=== PATIENT | female | born 1955 | race Hispanic/Latino ===

== ENCOUNTER 2017-11-16 07:32 | Inpatient (IN) | payer MEDICARE, MEDICAID ==
[2017-11-16 07:32] VITALS: BMI 30.2
--- NOTE | 2017-11-16 08:01 | ED PDOC ---
Arrival/HPI - General Chief Complaint: Psychiatric Evaluation Time Seen by Provider: 11/16/17 07:44 Historian: Patient - History of Present Illness Narrative History of Present Illness (Text): 11/16/17 08:00 A 62 year old male/female, whose past medical history includes major depressive disorder, presents to the emergency department for depression for past 3 months. Patient reports since a family member in August she has been experiencing anxiety, constant thinking, appetite changes and social withdrawal. Patient denies any suicidal ideation, fever, chills, shortness of breath, chest pain, diarrhea, nausea, vomiting, urinary symptoms, back pain, neck pain, headache, dizziness, or any other complaints. Psychiatrist: Dr. De La Vega Time/Duration: > month (3 months) Symptom Onset: Gradual Symptom Course: Unchanged Activities at Onset: Light Context: Home Past Medical History - Provider Review Nursing Documentation Reviewed: Yes - Tetanus Immunization Tetanus Immunization: Unknown - Cardiac Hx Hypertension: Yes - Pulmonary Hx Bronchitis: Yes Hx Chronic Obstructive Pulmonary Disease (COPD): Yes - Neurological Hx Alzheimer's Disease: No Hx Dementia: No Hx Migraine: No Hx Parkinson's Disease: No Hx Seizures: No Hx Transient Ischemic Attacks (TIA): No - HEENT Hx Cataracts: Yes (2 yrs ago) - Renal Hx Renal Disorder: No Hx Kidney Stones: No - Endocrine/Metabolic Hx Hyperthyroidism: No Hx Hypothyroidism: No - Hematological/Oncological Hx Anemia: No Hx Sickle Cell Disease: No - Integumentary Hx Dermatological Disorder: No Hx Basal Cell Carcinoma: No Hx Eczema: No Hx Melanoma: No Hx Psoriasis: No Hx Squamous Cell Carcinoma: No - Musculoskeletal/Rheumatological Hx Arthritis: Yes Hx Rheumatoid Arthritis: Yes - Gastrointestinal Hx Crohn's Disease: No Hx Diverticulitis: No Hx Gall Bladder Disease: No Hx Pancreatitis: No - Genitourinary/Gynecological Hx Sexually Transmitted Diseases: No - Psychiatric Hx Anxiety: Yes Hx Bipolar Disorder: Yes Hx Depression: Yes Hx Substance Use: No - Surgical History Hx Appendectomy: No Hx Cholecystectomy: No Hx Coronary Stent: No - Anesthesia Hx Anesthesia: Yes Hx Anesthesia Reactions: No - Suicidal Assessment Feels Threatened In Home Enviroment: No Family/Social History - Physician Review Nursing Documentation Reviewed: Yes Family/Social History: Unknown Family HX Smoking Status: Former Smoker Hx Alcohol Use: No Hx Substance Use: No Allergies/Home Meds Allergies/Adverse Reactions: Allergies No Known Allergies Allergy (Verified 11/19/17 04:21) Review of Systems - Physician Review All systems were reviewed & negative as marked: Yes - Review of Systems Constitutional: absent: Fevers, Night Sweats Respiratory: absent: SOB Cardiovascular: absent: Chest Pain Gastrointestinal: absent: Diarrhea, Nausea, Vomiting Genitourinary Female: absent: Urine Output Changes Musculoskeletal: absent: Back Pain, Neck Pain Neurological: absent: Headache, Dizziness Psychiatric: Anxiety, Depression. absent: Suicidal Ideation Physical Exam Vital Signs Reviewed: Yes Vital Signs Temp Pulse Resp BP Pulse Ox 11/16/17 11:18 98.3 F 68 18 128/68 99 11/16/17 10:18 72 16 131/70 99 11/16/17 09:17 75 18 133/64 99 11/16/17 07:43 98.1 F 79 16 135/66 97 Temperature: Afebrile Blood Pressure: Normal Pulse: Regular Respiratory Rate: Normal Appearance: Positive for: Well-Appearing, Non-Toxic, Comfortable, Other (Tearful) Pain Distress: None Mental Status: Positive for: Alert and Oriented X 3 - Systems Exam Head: Present: Atraumatic, Normocephalic Pupils: Present: PERRL Extroacular Muscles: Present: EOMI Conjunctiva: Present: Normal Mouth: Present: Moist Mucous Membranes Neck: Present: Normal Range of Motion Respiratory/Chest: Present: Clear to Auscultation, Good Air Exchange. No: Respiratory Distress, Accessory Muscle Use Cardiovascular: Present: Regular Rate and Rhythm, Normal S1, S2. No: Murmurs Abdomen: No: Tenderness, Distention, Peritoneal Signs Back: Present: Normal Inspection Upper Extremity: Present: Normal Inspection. No: Cyanosis, Edema Lower Extremity: Present: Normal Inspection. No: Edema Neurological: Present: GCS=15, CN II-XII Intact, Speech Normal Skin: Present: Warm, Dry, Normal Color. No: Rashes Psychiatric: Present: Alert, Oriented x 3, Normal Insight, Normal Concentration, Anxious, Depressed Mood. No: Normal Affect, Normal Mood, Agitated, Suicidal Ideation, Homicidal Ideation, Delusional, Hallucinations, Intoxicated, Lethargic Medical Decision Making ED Course and Treatment: 11/16/17 08:03 Impression: 62 year old female presenting to the emergency department for depression. Plan: -- EKG -- Acetaminophen -- Alcohol serum -- CMP -- Magnesium -- Salicylate -- CBC -- Urinalysis -- Reassess and disposition Prior Visits: Notes and results from previous visits were reviewed. Progress Notes: 11/16/17 08:09 EKG: Ordered, reviewed, and independently interpreted the EKG. Rate : 73 BPM Rhythm : NSR Interpretation : No ST-segment elevations or depressions, no T-wave inversions, normal intervals. Comparison : No previous EKG for comparison. 11/16/17 08:55 Patient is medically cleared for psych evaluation. Patient was evaluated by PES and will be admitted to the hospital. - Lab Interpretations Lab Results: 11/16/17 08:00 11/16/17 08:00 Lab Results 11/16/17 09:30: Urine Color Yellow, Urine Appearance Clear, Urine pH 6.0, Ur Specific [place] 1.010, Urine Protein Negative, Urine Glucose (UA) Negative, Urine Ketones Negative, Urine Blood Negative, Urine Nitrate Negative, Urine Bilirubin Negative, Urine Urobilinogen 0.2, Ur Leukocyte Esterase Large H, Urine RBC 0 - 2, Urine WBC 5 - 10, Ur Epithelial Cells 3 - 4 11/16/17 08:00: Alcohol, Quantitative < 10 11/16/17 08:00: Salicylates < 1 L, Acetaminophen < 10.0 L 11/16/17 08:00: Sodium 140, Potassium 4.5, Chloride 104, Carbon Dioxide 26, Anion Gap 14, BUN 19, Creatinine 0.9, Est GFR ( Amer) > 60, Est GFR (Non- Af Amer) > 60, Random Glucose 96, Calcium 9.7, Magnesium 2.0, Total Bilirubin 0.4, AST 25, ALT 31, Alkaline Phosphatase 96, Total Protein 7.9, Albumin 4.2, Globulin 3.7, Albumin/Globulin Ratio 1.2 11/16/17 08:00: WBC 7.1, RBC 4.12, Hgb 11.9 L, Hct 35.2 L, MCV 85.4, MCH 28.9, MCHC 33.8, RDW 13.2, Plt Count 218, MPV 12.3 H, Gran % 54.9, Lymph % (Auto) 30.9, [place] % (Auto) 8.4 H, Eos % (Auto) 5.2 H, Baso % (Auto) 0.6, Gran # 3.90, Lymph # (Auto) 2.2, [place] # (Auto) 0.6, Eos # (Auto) 0.4, Baso # (Auto) 0.04 - Medication Orders Current Medication Orders: Discontinued Medications Amlodipine Besylate (Norvasc) 5 mg PO DAILY [facility] Last Admin: 11/21/17 08:02 Dose: 5 mg MAR Pulse and Blood Pressure Document 11/21/17 08:02 RGO (Rec: 11/21/17 08:05 [id number] Pulse Pulse Rate (60-90) 74 Blood Pressure Blood Pressure (100/60-150/90) 176/56 Aspirin (Ecotrin) 81 mg PO DAILY [facility] Last Admin: 11/21/17 08:05 Dose: 81 mg Atorvastatin Calcium (Lipitor) 40 mg PO HS [facility] Last Admin: 11/20/17 21:10 Dose: 40 mg Clonidine HCl (Catapres) 0.1 mg PO TID PRN PRN Reason: BP >140 Last Admin: 11/20/17 17:30 Dose: 0.1 mg MAR Pulse and Blood Pressure Document 11/20/17 17:30 RGO (Rec: 11/20/17 17:31 [id number] Pulse Pulse Rate (60-90) 70 Blood Pressure Blood Pressure (100/60-150/90) 160/67 Folic Acid (Folic Acid) 1 mg PO DAILY [facility] Last Admin: 11/21/17 08:05 Dose: 1 mg Lorazepam (Ativan) 1 mg PO TID PRN; Protocol PRN Reason: Anxiety Last Admin: 11/21/17 08:01 Dose: 1 mg Behavioural Document 11/21/17 08:01 RGO (Rec: 11/21/17 08:01 [id number] Maintenance Maintenance Dose No Nonmedicinal Nonmedicinal Interventions Therapeutic Communication Behavior Behavior for Medication: Anxiety Lorazepam (Ativan) 2 mg PO Q6H PRN; Protocol PRN Reason: Agitation Last Admin: 11/21/17 00:19 Dose: 2 mg Behavioural Document 11/21/17 00:19 WP (Rec: 11/21/17 00:19 [id number]) Maintenance Maintenance Dose Yes Re-Assess: Reassess Psych Meds Document 11/21/17 01:19 WP (Rec: 11/21/17 01:46 [id number]) Reassess Psych Med Effective Lorazepam (Ativan) 2 mg IM Q6H PRN; Protocol PRN Reason: Agitation Losartan Potassium (Cozaar) 100 mg PO DAILY [facility] Last Admin: 11/21/17 08:05 Dose: 100 mg Multivitamins (Thera Tab) 1 tab PO 0800 [facility] Last Admin: 11/20/17 09:43 Dose: 1 tab Pantoprazole Sodium (Protonix Ec Tab) 40 mg PO 0700 [facility] Last Admin: 11/21/17 06:48 Dose: 40 mg Paroxetine HCl (Paxil) 20 mg PO HS [facility] Last Admin: 11/18/17 21:52 Dose: 20 mg Paroxetine HCl (Paxil) 30 mg PO HS [facility] Last Admin: 11/20/17 21:10 Dose: 30 mg Quetiapine Fumarate (Seroquel) 50 mg PO HS [facility]; Protocol Last Admin: 11/16/17 21:19 Dose: Not Given Non-Admin Reason: Patient Refused Behavioural Document 11/16/17 21:19 WP (Rec: 11/16/17 21:19 [id number]) Maintenance Maintenance Dose Yes Trazodone HCl (Desyrel) 100 mg PO HS PRN PRN Reason: Insomnia Ziprasidone (Geodon Cap) 20 mg PO Q6H PRN; Protocol PRN Reason: Agitation Last Admin: 11/16/17 15:06 Dose: 20 mg Behavioural Document 11/16/17 15:06 [facility] (Rec: 11/16/17 16:07 [id number]) Maintenance Maintenance Dose No Nonmedicinal Nonmedicinal Interventions Redirect Behavior Behavior for Medication: Biting/Hitting/Throwing/ Kicking Continuous crying/screaming/ yelling Ziprasidone (Geodon Inj) 20 mg IM Q6H PRN; Protocol PRN Reason: Agitation Ziprasidone (Geodon Cap) 20 mg PO BID [facility]; Protocol Last Admin: 11/21/17 08:05 Dose: Not Given Non-Admin Reason: Patient Refused Ziprasidone (Geodon Cap) 20 mg PO HS [facility]; Protocol Last Admin: 11/20/17 21:13 Dose: Not Given Non-Admin Reason: Patient Refused - Scribe Statement The provider has reviewed the documentation as recorded by the Emilyibphilip Schwartz All medical record entries made by the Scribe were at my direction and pers onally dictated by me. I have reviewed the chart and agree that the record accurately reflects my personal performance of the history, physical exam, medical decision making, and the department course for this patient. I have also personally directed, reviewed, and agree with the discharge instructions and disposition. Disposition/Present on Arrival - Present on Arrival Any Indicators Present on Arrival: No History of DVT/PE: No History of Uncontrolled Diabetes: No Urinary Catheter: No History of Decub. Ulcer: No History Surgical Site Infection Following: None - Disposition Have Diagnosis and Disposition been Completed?: Yes Diagnosis: Psychiatric care Disposition: HOSPITALIZED Disposition Time: 08:02 Patient Plan: Admission Condition: FAIR
[2017-11-16 08:28] LABS: BASO # 0.04 K/mm3 (0.0-2.0); BASO % 0.6 % (0.0-3.0); EOS # 0.4 (0.0-0.7); EOS % 5.2 % (1.5-5.0); GRAN # 3.9 (1.4-6.5); GRAN % 54.9 % (50.0-68.0); HEMOGLOBIN 11.9 g/dL (12.0-16.0); LYMPH # 2.2 (1.2-3.4); LYMPH % 30.9 % (22.0-35.0); MEAN CELL VOLUME 85.4 fl (80.0-105.0); MEAN CORPUSCULAR HEMOGLOBIN 28.9 pg (25.0-35.0); MEAN CORPUSCULAR HGB CONC 33.8 g/dl (31.0-37.0); MEAN PLATELET VOLUME 12.3 fl (7.0-11.0); MONO # 0.6 (0.1-0.6); MONO % 8.4 % (1.0-6.0); RBC 4.12 10^6/uL (3.5-6.1); RED CELL DISTRIBUTION WIDTH 13.2 % (11.5-14.5); WHITE BLOOD COUNT 7.1 10^3/ul (4.5-11.0)
[2017-11-16 08:40] LABS: ALB/GLOB RATIO 1.2 (1.1-1.8); ALBUMIN 4.2 g/dL (3.0-4.8); ALT/SGPT 31 U/L (7-56); AST/SGOT 25 U/L (14-36); BLOOD UREA NITROGEN 19 mg/dL (7-21); CALCIUM 9.7 mg/dL (8.4-10.5); GFR NON-AFRICAN AMERICAN > 60
[2017-11-16 08:41] LABS: ACETAMINOPHEN < 10.0 ug/ml (10.0-20.0); SALICYLATE < 1 mg/dL (2.0-20.0)
[2017-11-16 09:39] LABS: URINE BILIRUBIN NEGATIVE (NEGATIVE); URINE BLOOD NEGATIVE (NEGATIVE); URINE GLUCOSE (UA) NEGATIVE (NEGATIVE); URINE LEUKOCYTE ESTERASE LARGE Leu/uL (NEGATIVE); URINE PROTEIN NEGATIVE mg/dL (<30 mg/dL); URINE UROBILINOGEN 0.2 E.U./dL (<1 E.U./dL)
[2017-11-16 09:51] LABS: URINE APPEARANCE CLEAR (CLEAR); URINE COLOR YELLOW (YELLOW)
[2017-11-16 10:21] LABS: URINE RBC 0 - 2 /hpf (0-2)
[2017-11-16 11:39] VITALS: O2SAT 100
--- NOTE | 2017-11-16 12:44 | RAD ---
Date of service: 11/16/2017 HISTORY: psych COMPARISON: No prior. FINDINGS: LUNGS: No active pulmonary disease. PLEURA: No significant pleural effusion identified, no pneumothorax apparent. CARDIOVASCULAR: Normal. OSSEOUS STRUCTURES: No significant abnormalities. VISUALIZED UPPER ABDOMEN: Normal. OTHER FINDINGS: None. IMPRESSION: No active disease.
--- NOTE | 2017-11-16 15:28 | PCM.PSYCH ---
Initial Psychiatric Evaluation - Initial Psychiatric Evaluation Type of Admission: Voluntary Legal Status: Capacity (patient has capacity to sign consent for treatment) Chief Complaint (in patient's own words): "AAAAA, I made a mistake, I am dying, I want to leave, you have to let me go, AAAAAAA, I don't know what is going on with me, AAAAA, I cannot control myself, AAAA, let me go......." pt was medicated with po ativan and geosulema parsons called. Patient's Reaction to Hospitalization: initially patient was willing to be admitted to psychiatric inpatient unit, in the process of admission while patient reached locked unit patient became agitated, was screaming out loud on top of her lungs, requesting discharge as soon as possible, at the same time patient refused to submit 48 hour notice, patient obviously in acute distress, requires further evaluation and stabilization. History of Present Illness and Precipitating Events: shortly patient is 62-year-old female with reported history of major depressive disorder, history of previous hospitalizations into the psychiatric inpatient unit, patient denied history of suicidal attempts, patient currently sees Dr. Murrieta as private psychiatrist, patient lives independently, patient brother this summer which led patient to severe depression, inability to function, self isolation,, patient was not taking care of her hygiene, patient was feeling hopeless and helpless, patient was sent to the emergency room by her private psychiatrist for psychiatric admission. Patient needs to have observation, stabilization, patient feel less level of care, requiresfurther hospitalization and medications adjustment. Patient was seen and examined next to the nursing station, patient approached this screenplay writer started to scream, yell, was in acute distress, patient was not able to calm down, patient was screaming "AAAAA, I made a mistake, I am dying, I want to leave, you have to let me go, AAAAAAA, I don't know what is going on with me, AAAAA, I cannot control myself, AAAA, let me go.......", staff intervene immediately, pt was redirected to the quiet room "I am not going there AAAA, I am NOT going there....", pt was walked to the office, pt was medicated with po Ativan and later PO Geni painter almost called, but pt was able to calm down. Patient reported after the of her brother she was feeling more depressed , hopeless and helpless, "it got into me", patient was feeling "trapped in my own house", patient reported that she was not able to relax, had difficulties to fall asleep and stay asleep, patient reported that she had difficulties to concentrate and stay focused, patient denied intent or plan to kill herself or others but was feeling very hopeless. Patient denied hearing voices denied seeing things, but patient presented to be guarded and paranoid, constantly looking at her back. Patient denied using any drugs, denied using alcohol, denied smoking. No manic symptoms reported or observed. Patient appears to be very anxious, patient reports that she has panic attacks, patient reports that her mind is racing, patient also reports no history of abuse. Past psychiatric history: As per history from the patient she did not require any acute psychiatric admissions "for years I was doing well". Patient's address history of suicidal attempts in the past. Family history: Unknown. Medical history: Dyslipidemia, hypertension, GERD. Med list: Paxil 10 mg daily Ativan 1 mg 3 times a day Losartan 100 mg daily Norvasc 5 mg daily Folic acid 1 mg daily Nexium 40 mg daily Lipitor 40 mg at the nighttime Trazodone 100 mg at the nighttime patient reported that she has been compliant with the medications. 11/16/17 08:00 11/16/17 08:00 Lab Results 11/16/17 09:30: Urine Color Yellow, Urine Appearance Clear, Urine pH 6.0, Ur Specific [place] 1.010, Urine Protein Negative, Urine Glucose (UA) Negative, Urine Ketones Negative, Urine Blood Negative, Urine Nitrate Negative, Urine Bilirubin Negative, Urine Urobilinogen 0.2, Ur Leukocyte Esterase Large H, Urine RBC 0 - 2, Urine WBC 5 - 10, Ur Epithelial Cells 3 - 4 11/16/17 08:00: Alcohol, Quantitative < 10 11/16/17 08:00: Salicylates < 1 L, Acetaminophen < 10.0 L 11/16/17 08:00: Sodium 140, Potassium 4.5, Chloride 104, Carbon Dioxide 26, Anion Gap 14, BUN 19, Creatinine 0.9, Est GFR ( Amer) > 60, Est GFR (Non- Af Amer) > 60, Random Glucose 96, Calcium 9.7, Magnesium 2.0, Total Bilirubin 0.4, AST 25, ALT 31, Alkaline Phosphatase 96, Total Protein 7.9, Albumin 4.2, Globulin 3.7, Albumin/Globulin Ratio 1.2 11/16/17 08:00: WBC 7.1, RBC 4.12, Hgb 11.9 L, Hct 35.2 L, MCV 85.4, MCH 28.9, MCHC 33.8, RDW 13.2, Plt Count 218, MPV 12.3 H, Gran % 54.9, Lymph % (Auto) 30.9 , [place] % (Auto) 8.4 H, Eos % (Auto) 5.2 H, Baso % (Auto) 0.6, Gran # 3.90, Lymph # (Auto) 2.2, [place] # (Auto) 0.6, Eos # (Auto) 0.4, Baso # (Auto) 0.04 Vital Signs Temp Pulse Resp BP Pulse Ox 11/16/17 12:16 98.4 F 74 18 164/57 H 11/16/17 11:37 65 17 127/70 100 11/16/17 11:18 98.3 F 68 18 128/68 99 11/16/17 10:18 72 16 131/70 99 11/16/17 09:17 75 18 133/64 99 11/16/17 07:43 98.1 F 79 16 135/66 97 Current Medications: Active Medications Generic Name Dose Route Start Last Admin Trade Name Freq PRN Reason Stop Dose Admin Amlodipine Besylate 5 mg 11/17/17 08:00 Norvasc PO DAILY [facility] Atorvastatin Calcium 40 mg 11/16/17 22:00 Lipitor PO HS [facility] Folic Acid 1 mg 11/17/17 08:00 Folic Acid PO DAILY [facility] Lorazepam 1 mg 11/16/17 12:45 Ativan PO TID PRN Anxiety Protocol Lorazepam 2 mg 11/16/17 12:56 Ativan PO Q6H PRN Agitation Protocol Lorazepam 2 mg 11/16/17 13:00 Ativan IM Q6H PRN Agitation Protocol Losartan Potassium 100 mg 11/17/17 08:00 Cozaar PO DAILY [facility] Multivitamins 1 tab 11/17/17 08:00 Thera Tab PO 0800 [facility] Pantoprazole Sodium 40 mg 11/17/17 07:00 Protonix Ec Tab PO 0700 [facility] Paroxetine HCl 20 mg 11/16/17 22:00 Paxil PO HS [facility] Trazodone HCl 100 mg 11/16/17 12:54 Desyrel PO HS PRN Insomnia Ziprasidone 20 mg 11/16/17 12:55 Geodon Cap PO Q6H PRN Agitation Protocol Ziprasidone 20 mg 11/16/17 12:58 Geodon Inj IM Q6H PRN Agitation Protocol Past Psychiatric History - Past Psychiatric History Previous Treatment History: Inpatient Prior Professional Help: see HPI Prior Psychiatric Treatment: see HPI At what hospital: see HPI Duration: see HPI Nature of Treatment: see HPI Explanation of prior treatment: see HPI History of Abuse: see HPI History of ETOH/Drug Use: see HPI History of Family Illness: see HPI Pertinent Medical Hx (Current Medical&Sleep Prob, Allergies): Allergies Allergy/AdvReac Type Severity Reaction Status Date / Time No Known Allergies Allergy Verified 11/16/17 07:46 Lorazepam [Ativan] 1 mg PO TID 12/22/14 PARoxetine [Paxil] 10 mg PO DAILY 12/22/14 Losartan [Cozaar] 100 mg PO DAILY #0 tab 12/26/14 amLODIPine [Norvasc] 5 mg PO DAILY #0 tab 12/26/14 Atorvastatin [Lipitor] 40 mg PO HS 09/10/15 Esomeprazole Magnesium [Nexium] 40 mg PO DAILY 09/10/15 Folic Acid 1 mg PO DAILY 09/10/15 traZODone [Desyrel] 100 mg PO HS PRN 09/10/15 Adalimumab [Humira] 11/16/17 Methotrexate [Methotrexate] 11/16/17 Review of Systems - Review of Systems Systems not reviewed;Unavailable: Acuity of Condition - EENT Eyes: As Per HPI Ears: As Per HPI Nose/Mouth/Throat: As Per HPI - Breasts Breasts: As Per HPI - Cardiovascular Cardiovascular: As Per HPI - Respiratory Respiratory: As Per HPI - Gastrointestinal Gastrointestinal: As Per HPI - Genitourinary Genitourinary: As Per HPI - Reproductive: Female Reproductive:Female: As Per HPI - Menstruation Menstruation: As Per HPI - Musculoskeletal Musculoskeletal: As Par HPI - Integumentary Integumentary: As Per HPI - Neurological Neurological: As Per HPI - Psychiatric Psychiatric: As Per HPI - Endocrine Endocrine: As Per HPI - Hematologic/Lymphatic Hematologic: As Per HPI Mental Status Examination - Personal Presentation Personal Presentation: Looks older than stated age - Affect Affect: Constricted (and tearful), Flat - Reliability in Providing Information Reliability in Providing Information: Poor, due to alteration in thoughts, Poor , due to altered mood - Speech Speech: Tangential - Mood Mood: Depressed, Anxious - Formal Thought Process Formal Thought Process: Delusions, Paranoia, Loosening of associations, Circumstantial - Hallucinations/Delusions Delusions: Persecution - Cognitive Functions Orientation: Person, Place, Situation Sensorium: Alert Attention/Concentration: Easily distracted Abstract Thinking: [place] Estimate of Intelligence: Below average Judgement: Intact, as evidence by: Insight regarding need for hospitalization - Risk Risk: Self-mutilation, Diminished functioning - Strength & Assets Inventory Strength & Assets Inventory: Other (no drugs, stable living situation) - Limitations Limitations: Living alone, Other (recent loss of her brother) DSM 5 DX - DSM 5 DSM 5 Diagnosis: major depressive disorder Panic disorder Generalized anxiety disorder The pathological grief - Recommended/Plan of Treatment Treatment Recommendations and Plan of Treatment: Milieu/structure/supportive therapy Medical consult was called Adalimumab [Humira] nonformulary in the hospital Methotrexate [Methotrexate] as per medical team Losartan [Cozaar] 100 mg PO DAILY will be continued amLODIPine [Norvasc] 5 mg PO DAILY will be continued Atorvastatin [Lipitor] 40 mg PO HS will be continued Esomeprazole Magnesium [Nexium] 40 mg PO DAILY will be continued Folic Acid 1 mg PO DAILY will be continue consultation for discharge plan and social issues Med management PARoxetine [Paxil] will be increased to 20 mg PO DAILY with depression and anxiety Seroquel 50 mg at the nighttime for mood stabilization as well as possible psychosis traZODone will be on hold Ativan 1 mg 3 times a day for anxiety Family involvement Follow up on labs Will monitor closely Pt was educated about risk/benefits and alternatives of medications, coping strategies (safety plan, suicide prevention), relapse prevention, importance of follow up with psychiatrist and therapist, stay away from drugs/alcohol/smoking Dr. Murrieta was contacted, left a message, waiting for call back Projected ELOS: 7 days Prognosis: guarded Discharge Plan and Discharge Criteria: Pt will be not depressed or manic, will be more hopeful, will be not psychotic or anxious, will be not having thoughts of harming self or others, will be tolerating medications well, will not have major side effects, will be able to function, will not pose threat to self or others. - Smoking Cessation Smoking Cessation Initiated: No Reason for not providing: patient denied smoking
--- NOTE | 2017-11-16 17:09 | PCM.BM ---
<WhitBryce johnson - Last Filed: 11/16/17 17:05> Treatment Plan Problems - Problems identified on initial assessmt AGITATED/ AGGRESSIVE BEHAVIOR Date Initiated: 11/16/17 Time Initiated: 17:06 Assessment reference: HP, Other Status: Active INEFFECTIVE IMPULSE CONTOL Date Initiated: 11/16/17 Time Initiated: 17:08 Assessment reference: HP, Other MEDICATION NONADHERENCE Date Initiated: 11/16/17 Time Initiated: 17:08 Assessment reference: Other Status: Active Treatment assets and liabiliti Patient Assests: self-reliant, ADL independent, other Patient Liabilities: medical problems, other - Milieu Protocol Maintain good personal hygiene: daily Encourage regular showers, daily Remind patient to perform daily oral care, daily Assist patient to perform ADL's Maintain personal safety: daily Educate patient to report safety concerns to staff, daily Monitor environment for contraband/sharps Medication safety: Monitor for expected outcome, potential side effects: daily, Assess barriers to learning: daily, Assess readiness for medication education: daily Milieu Narrative: Milieu/structure/supportive therapy Medical consult was called Adalimumab [Humira] nonformulary in the hospital Methotrexate [Methotrexate] as per medical team Losartan [Cozaar] 100 mg PO DAILY will be continued amLODIPine [Norvasc] 5 mg PO DAILY will be continued Atorvastatin [Lipitor] 40 mg PO HS will be continued Esomeprazole Magnesium [Nexium] 40 mg PO DAILY will be continued Folic Acid 1 mg PO DAILY will be continue consultation for discharge plan and social issues Med management PARoxetine [Paxil] will be increased to 20 mg PO DAILY with depression and anxiety Seroquel 50 mg at the nighttime for mood stabilization as well as possible psychosis traZODone will be on hold Ativan 1 mg 3 times a day for anxiety Family involvement Follow up on labs Will monitor closely Pt was educated about risk/benefits and alternatives of medications, coping strategies (safety plan, suicide prevention), relapse prevention, importance of follow up with psychiatrist and therapist, stay away from drugs/alcohol/smoking Dr. Murrieta was contacted, left a message, waiting for call back Discharge/Continuing Care - Education Needs Education Needs: Patient Medication, Patient Diagnosis/Disease Process, Patient Coping Skills, Patient Anger Management skills, Patient Community resources, Patient Activities of Daily Living, Patient Health Practices/Safety, Patient Personal Hygiene/Grooming, Patient Aftercare Safety Plan - Discharge Discharge Criteria: Tolerates medication w/o severe side effects, Free of Suicidal thoughts, Free of Homicidal thoughts, Free of paranoid thoughts, Free of agitation, Normal sleep pattern, Ability to care for self - Treatment Team Participation Patient/Family/SO Statement: Milieu/structure/supportive therapy Medical consult was called Adalimumab [Humira] nonformulary in the hospital Methotrexate [Methotrexate] as per medical team Losartan [Cozaar] 100 mg PO DAILY will be continued amLODIPine [Norvasc] 5 mg PO DAILY will be continued Atorvastatin [Lipitor] 40 mg PO HS will be continued Esomeprazole Magnesium [Nexium] 40 mg PO DAILY will be continued Folic Acid 1 mg PO DAILY will be continue consultation for discharge plan and social issues Med management PARoxetine [Paxil] will be increased to 20 mg PO DAILY with depression and anxiety Seroquel 50 mg at the nighttime for mood stabilization as well as possible psychosis traZODone will be on hold Ativan 1 mg 3 times a day for anxiety Family involvement Follow up on labs Will monitor closely Pt was educated about risk/benefits and alternatives of medications, coping strategies (safety plan, suicide prevention), relapse prevention, importance of follow up with psychiatrist and therapist, stay away from drugs/alcohol/smoking Dr. Murrieta was contacted, left a message, waiting for call back <Lucinda Freire - Last Filed: 11/17/17 07:15> - Diagnosis (1) Schizoaffective disorder, bipolar type Status: Acute Interventions: 11/17/17 07:15 Psychoeducation/psychotherapy Psychopharmacology/adjustment of medications as needed/ monitoring possible side effects Evaluate pt on daily basis Compliance with medications and follow up appointments Long acting medication if pt is noncompliant with pill form Suicide and homicide risk assessment and prevention, coping strategies, safety plan Relapse prevention Reduction of symptoms Improve functional status Possible assertive community treatment Cognitive behavioral therapy Family involvement Possible social skill training as outpatient (2) Hypertension Status: Acute Interventions: 11/17/17 07:15 multiple medical issues: Pt will be seen by medical team as needed Medications will be confirmed and resumed Additional consultation by specialists as needed Lab work as needed (CBC, CMP, TSH, free T4, UA, Urine test for females as needed) CXR as needed EKG Physical therapy evaluation as needed <Lucia Teixeira - Last Filed: 11/19/17 14:27>
--- NOTE | 2017-11-16 21:05 | CARD ---
APPROVED REPORT Date of service: 11/16/2017 EKG Measurement Heart [id number] <Conclusion> Normal sinus rhythm Normal ECG
[2017-11-17] MEDS: Pantoprazole 40 mg EC Tab PO SCH (07:09)
[2017-11-17] MEDS: Multivitamin Therapeutic Tab PO SCH (08:26)
[2017-11-17 08:34] LABS: GLUCOSE,FASTING 116 mg/dL (65-110); HDL CHOLESTEROL 45 mg/dL (29-60)
[2017-11-17 08:44] LABS: LDL CHOLESTEROL 83 mg/dL (0-129)
[2017-11-17 08:54] LABS: FREE T4 1.12 ng/dL (0.78-2.19)
--- NOTE | 2017-11-17 10:25 | PCM.PYCHPN ---
Psychiatric Progress Note - Psychiatric Progress Note Patient seen today, length of contact: 30min Patient Chief Complaint: "I feel little better, Suzan is helping, I slept a little..." Problems Identified/Issues Discussed: Suicide/ homicide prevention, past psychiatric h/o, current psychiatric symptoms , medical problems, risk/benefits and alternatives of medications, medications compliance, coping strategies, substance abuse h/o, relapse prevention, importance of follow up with psychiatrist and therapist, discharge plan. Medical Problems: see HPI Diagnostic Results: 11/16/17 08:00 11/16/17 08:00 Lab Results 11/17/17 07:30: Fasting Glucose 116 H, Triglycerides 91, Cholesterol 161, LDL Cholesterol Direct 83, HDL Cholesterol 45 11/17/17 07:30: Free T4 1.12, TSH 3rd Generation 1.21 11/16/17 09:30: Urine Color Yellow, Urine Appearance Clear, Urine pH 6.0, Ur Specific [place] 1.010, Urine Protein Negative, Urine Glucose (UA) Negative, Urine Ketones Negative, Urine Blood Negative, Urine Nitrate Negative, Urine Bilirubin Negative, Urine Urobilinogen 0.2, Ur Leukocyte Esterase Large H, Urine RBC 0 - 2, Urine WBC 5 - 10, Ur Epithelial Cells 3 - 4 11/16/17 08:00: Alcohol, Quantitative < 10 11/16/17 08:00: Salicylates < 1 L, Acetaminophen < 10.0 L 11/16/17 08:00: Sodium 140, Potassium 4.5, Chloride 104, Carbon Dioxide 26, Anion Gap 14, BUN 19, Creatinine 0.9, Est GFR ( Amer) > 60, Est GFR (Non- Af Amer) > 60, Random Glucose 96, Calcium 9.7, Magnesium 2.0, Total Bilirubin 0.4, AST 25, ALT 31, Alkaline Phosphatase 96, Total Protein 7.9, Albumin 4.2, Globulin 3.7, Albumin/Globulin Ratio 1.2 11/16/17 08:00: WBC 7.1, RBC 4.12, Hgb 11.9 L, Hct 35.2 L, MCV 85.4, MCH 28.9, MCHC 33.8, RDW 13.2, Plt Count 218, MPV 12.3 H, Gran % 54.9, Lymph % (Auto) 30.9 , [place] % (Auto) 8.4 H, Eos % (Auto) 5.2 H, Baso % (Auto) 0.6, Gran # 3.90, Lymph # (Auto) 2.2, [place] # (Auto) 0.6, Eos # (Auto) 0.4, Baso # (Auto) 0.04 Vital Signs Temp Pulse Resp BP Pulse Ox 11/17/17 08:26 71 124/56 L 11/17/17 07:00 97.7 F 71 124/56 L 11/16/17 12:16 98.4 F 74 18 164/57 H 11/16/17 11:37 65 17 127/70 100 11/16/17 11:18 98.3 F 68 18 128/68 99 11/16/17 10:18 72 16 131/70 99 11/16/17 09:17 75 18 133/64 99 11/16/17 07:43 98.1 F 79 16 135/66 97 DSM 5 Symptoms Update: shortly patient is 62-year-old female with reported history of major depressive disorder, vs schizoaffective disorder, history of previous hospitalizations into the psychiatric inpatient unit, patient denied history of suicidal attempts, patient currently sees Dr. Murrieta as private psychiatrist, patient lives independently, patient brother this summer which led patient to severe depression, inability to function, self isolation,, patient was not taking care of her hygiene, patient was feeling hopeless and helpless, patient was sent to the emergency room by her private psychiatrist for psychiatric admission. Patient needs to have observation, stabilization, patient feel less level of care, requires further hospitalization and medications adjustment. patient was seen and examined today Nursing station, hygiene and steal fall from being ideal, patient did not take shower, but patient obviously much more to come. Yesterday. Yesterday patient was screaming and yelling needed to be medicated, very hard to interview. Please see notes for more detailed information. As per staff patient refused to have Seroquel at the nighttime, patient reported "I didn't like the way it makes me feel", patient reported that she likes Geodon which was given to her as needed, risk, benefits, alternatives discussed, patient is willing to have that medication as scheduled. Patient reported that she feels very anxious and depressed, denied any thoughts of harming herself or others. As per staff patient had good night sleep, no agitation or aggression after patient was medicated with Geodon and Ativan. Collateral information was obtained from patient private psychiatrist Dr. Murrieta, patient was very depressed after her brother , patient was angry towards her brother because brother left all his money to his son and not to the pt, pt had inner conflict and pt had "love/hate"relationship with brother. pt is estranged from his nephew. pt was self isolating, on edge, was withdrawn. pt has dx of schizoaffective disorder. so far patient tolerates medications well, no side effects observed or reported , aims 0, no EPS. Impression: As per history schizoaffective disorder Medication Change: Yes (geodon TID) Medical Record Reviewed: Yes Consults ordered or reviewed: medical consult was requested pt has RA, HT Mental Status Examination - Cognitive Function Orientation: Person, Place, Situation Memory: Impaired Attention: Poor Concentration: Poor Association: Loose Fund of Knowledge: Poor - Mood Mood: Depressed, Anxious - Affect Affect: Constricted (and tearful), Flat - Speech Speech: Appropriate (more appropriate today) - Formal Thought Process Formal Thought Process: Delusions (little better ), Paranoia (still guarded and paranoid), Loosening of associations, Circumstantial - Suicidal Ideation Suicidal Ideation: No - Homicidal Ideation Homicidal Ideation: No Goal/Treatment Plan - Goal/Treatment Plan Need for Continued Stay: Remain at risks for inpatient hospitalization, Severe depression anxiety, Discharge may exacerbated symptoms, Severe functional impairment Progress Toward Problem(s) and Goals/Treatment Plan: Milieu/structure/supportive therapy Medical consult was called Adalimumab [Humira] nonformulary in the hospital Methotrexate [Methotrexate] as per medical team Losartan [Cozaar] 100 mg PO DAILY will be continued amLODIPine [Norvasc] 5 mg PO DAILY will be continued Atorvastatin [Lipitor] 40 mg PO HS will be continued Esomeprazole Magnesium [Nexium] 40 mg PO DAILY will be continued Folic Acid 1 mg PO DAILY will be continue consultation for discharge plan and social issues Med management PARoxetine [Paxil] 20 mg PO DAILY with depression and anxiety Seroquel d/c as per pt's request Geodon 20mg po tid for psychosis and mood stabilization Ativan 1 mg 3 times a day for anxiety Family involvement Follow up on labs Will monitor closely Pt was educated about risk/benefits and alternatives of medications, coping strategies (safety plan, suicide prevention), relapse prevention, importance of follow up with psychiatrist and therapist, stay away from drugs/alcohol/smoking Dr. Murrieta was contacted, collaterals appreciated 11/16/17 Estimated Date of D/C: 11/21/17
[2017-11-18] MEDS: Pantoprazole 40 mg EC Tab PO SCH (07:37)
[2017-11-18] MEDS: Multivitamin Therapeutic Tab PO SCH (09:02)
--- NOTE | 2017-11-18 11:40 | PCM.PYCHPN ---
Psychiatric Progress Note - Psychiatric Progress Note Patient seen today, length of contact: 30min Patient Chief Complaint: "I feel little better, Suzan is helping, I want to go home tomorrow". Problems Identified/Issues Discussed: Suicide/ homicide prevention, past psychiatric h/o, current psychiatric symptoms , medical problems, risk/benefits and alternatives of medications, medications compliance, coping strategies, substance abuse h/o, relapse prevention, importance of follow up with psychiatrist and therapist, discharge plan. Medical Problems: see HPI Diagnostic Results: 11/16/17 08:00 11/16/17 08:00 Lab Results 11/17/17 07:30: Fasting Glucose 116 H, Triglycerides 91, Cholesterol 161, LDL Cholesterol Direct 83, HDL Cholesterol 45 11/17/17 07:30: Free T4 1.12, TSH 3rd Generation 1.21 11/16/17 09:30: Urine Color Yellow, Urine Appearance Clear, Urine pH 6.0, Ur Specific [place] 1.010, Urine Protein Negative, Urine Glucose (UA) Negative, Urine Ketones Negative, Urine Blood Negative, Urine Nitrate Negative, Urine Bilirubin Negative, Urine Urobilinogen 0.2, Ur Leukocyte Esterase Large H, Urine RBC 0 - 2, Urine WBC 5 - 10, Ur Epithelial Cells 3 - 4 11/16/17 08:00: Alcohol, Quantitative < 10 11/16/17 08:00: Salicylates < 1 L, Acetaminophen < 10.0 L 11/16/17 08:00: Sodium 140, Potassium 4.5, Chloride 104, Carbon Dioxide 26, Anion Gap 14, BUN 19, Creatinine 0.9, Est GFR ( Amer) > 60, Est GFR (Non- Af Amer) > 60, Random Glucose 96, Calcium 9.7, Magnesium 2.0, Total Bilirubin 0.4, AST 25, ALT 31, Alkaline Phosphatase 96, Total Protein 7.9, Albumin 4.2, Globulin 3.7, Albumin/Globulin Ratio 1.2 11/16/17 08:00: WBC 7.1, RBC 4.12, Hgb 11.9 L, Hct 35.2 L, MCV 85.4, MCH 28.9, MCHC 33.8, RDW 13.2, Plt Count 218, MPV 12.3 H, Gran % 54.9, Lymph % (Auto) 30.9 , [place] % (Auto) 8.4 H, Eos % (Auto) 5.2 H, Baso % (Auto) 0.6, Gran # 3.90, Lymph # (Auto) 2.2, [place] # (Auto) 0.6, Eos # (Auto) 0.4, Baso # (Auto) 0.04 Vital Signs Temp Pulse Resp BP Pulse Ox 11/17/17 08:26 71 124/56 L 11/17/17 07:00 97.7 F 71 124/56 L 11/16/17 12:16 98.4 F 74 18 164/57 H 11/16/17 11:37 65 17 127/70 100 11/16/17 11:18 98.3 F 68 18 128/68 99 11/16/17 10:18 72 16 131/70 99 11/16/17 09:17 75 18 133/64 99 11/16/17 07:43 98.1 F 79 16 135/66 97 DSM 5 Symptoms Update: shortly patient is 62-year-old female with reported history of major depressive disorder, vs schizoaffective disorder, history of previous hospitalizations into the psychiatric inpatient unit, patient denied history of suicidal attempts, patient currently sees Dr. Murrieta as private psychiatrist, patient lives independently, patient brother this summer which led patient to severe depression, inability to function, self isolation,, patient was not taking care of her hygiene, patient was feeling hopeless and helpless, patient was sent to the emergency room by her private psychiatrist for psychiatric admission. Patient needs to have observation, stabilization, patient feel less level of care, requires further hospitalization and medications adjustment. patient was seen and examined today Next nursing station, patient presented to be with poor personal hygiene, and greasy, uncombed hair,, patient reported that she feels better, at the same time patient is not taking showers, presents to be disheveled. he shouldn't reported that she likes Geodon, compliant with that medication, patient reported that she was to be discharged tomorrow because she needs to follow up with her primary care physician for her Rheumatoid arthritis shots, patient was seen by medical team, consult appreciated As per staff patient had good night sleep, no agitation or aggression after patient was medicated with Geodon and Ativan. Collateral information was obtained from patient private psychiatrist Dr. Murrieta, patient was very depressed after her brother , patient was angry towards her brother because brother left all his money to his son and not to the pt, pt had inner conflict and pt had "love/hate"relationship with brother. pt is estranged from his nephew. pt was self isolating, on edge, was withdrawn. pt has dx of schizoaffective disorder. so far patient tolerates medications well, no side effects observed or reported , aims 0, no EPS. Impression: As per history schizoaffective disorder Medication Change: Yes (geodon TID) Medical Record Reviewed: Yes Consults ordered or reviewed: medical consult was requested pt has RA, HT Mental Status Examination - Cognitive Function Orientation: Person, Place, Situation Memory: Impaired Attention: Poor (somewhat better) Concentration: Poor (somewhat better) Association: Loose Fund of Knowledge: Poor - Mood Mood: Depressed ('I feel better"), Anxious - Affect Affect: Constricted (lless tearful) - Speech Speech: Appropriate (more appropriate today) - Formal Thought Process Formal Thought Process: Delusions (little better ), Paranoia (less guarded and paranoid), Loosening of associations, Circumstantial - Suicidal Ideation Suicidal Ideation: No - Homicidal Ideation Homicidal Ideation: No Goal/Treatment Plan - Goal/Treatment Plan Need for Continued Stay: Remain at risks for inpatient hospitalization, Severe depression anxiety, Discharge may exacerbated symptoms, Severe functional impairment Progress Toward Problem(s) and Goals/Treatment Plan: Milieu/structure/supportive therapy Medical consult was called Adalimumab [Humira] nonformulary in the hospital Methotrexate [Methotrexate] as per medical team Losartan [Cozaar] 100 mg PO DAILY will be continued amLODIPine [Norvasc] 5 mg PO DAILY will be continued Atorvastatin [Lipitor] 40 mg PO HS will be continued Esomeprazole Magnesium [Nexium] 40 mg PO DAILY will be continued Folic Acid 1 mg PO DAILY will be continue consultation for discharge plan and social issues Med management PARoxetine [Paxil] 20 mg PO DAILY with depression and anxiety Geodon 20mg po tid for psychosis and mood stabilization Ativan 1 mg 3 times a day for anxiety Family involvement Follow up on labs Will monitor closely Pt was educated about risk/benefits and alternatives of medications, coping strategies (safety plan, suicide prevention), relapse prevention, importance of follow up with psychiatrist and therapist, stay away from drugs/alcohol/smoking Dr. Murrieta was contacted, collaterals appreciated 11/16/17 Estimated Date of D/C: 11/21/17
--- NOTE | 2017-11-19 00:38 | PN ---
DATE: 11/18/2017 SUBJECTIVE: The patient is a 62-year-old female. The patient was seen and examined on bedside on 11/18/2017. Looking comfortable. No nausea, vomiting, or diarrhea. No hematuria or hematochezia. No swelling of the legs. No chest pain. No palpitation. No headache. No dizziness. PHYSICAL EXAMINATION: VITAL SIGNS: Temperature 97.7, pulse 93, blood pressure 120/90, respiratory rate 20. HEENT: Head: Normocephalic, atraumatic. Eyes: PERRLA. Extraocular muscles intact. Conjunctivae clear. Nose: Patent. Mucous membrane moist. NECK: Supple. No carotid bruit, JVD or thyromegaly. CHEST: Bilaterally symmetrical. HEART: S1 and S2 positive. LUNGS: Clear to auscultation. ABDOMEN: Soft. Bowel sounds present. No organomegaly. EXTREMITIES: No edema. No cyanosis. NEUROLOGIC: The patient is awake and alert. Moving all 4 extremities. No focal deficits. MEDICATIONS: Ativan, Cozaar, trazodone, folic acid, Geodon, Lipitor, Norvasc, Paxil, Protonix. LABORATORY DATA: White blood cells 7.1, hemoglobin 11.9, hematocrit 35.2, platelets 218. ASSESSMENT AND PLAN: Ms. Lisa Singer is a 62-year-old lady with anemia, hyperglycemia, history of major depression disorder, schizoaffective disorder, history of previous hospitalizations into the psychiatric inpatient units, patient is Dr. Gracia's patient, patient is noncompliant, getting Geodon three times a day, history of hypertension, rheumatoid arthritis, hypercholesterolemia, gastroesophageal reflux disease, dyspepsia. Appreciated Dr. Lucinda Freire's consult. Repeat labs. We will follow up. Jyothi Booker MD
[2017-11-19] MEDS: Pantoprazole 40 mg EC Tab PO SCH (06:56)
[2017-11-19] MEDS: Multivitamin Therapeutic Tab PO SCH (09:00)
--- NOTE | 2017-11-19 09:13 | CON ---
DATE: 11/16/2017 The patient was seen and examined on the bedside on 11/16/2017. This is for 11/16/2017. CHIEF COMPLAINT: Psych evaluation. HISTORY OF PRESENT ILLNESS: Ms. Lisa Singer is a 62-year-old female with past medical history of major depression, came to the Emergency Department for depression for past 3 months. Patient reports since a family member in August, she has been experiencing anxiety, constant thinking, appetite change, and social withdrawals. Patient denies any suicidal or homicidal ideation. No fever. No chills, nausea, vomiting, or diarrhea. No hematuria or hematochezia. No headache. No dizziness. No chest pain. No palpitation. PAST MEDICAL HISTORY: Hypertension, COPD, history of cataract surgery, anxiety, depression. ALLERGIES: PATIENT IS NOT ALLERGIC WITH ANY MEDICATIONS. HOME MEDICATIONS: Ativan, Paxil, Lipitor, Nexium, folic acid, trazodone, methotrexate. REVIEW OF SYSTEMS: Patient was seen and examined on the bedside in her room, looking comfortable. No nausea, vomiting, or diarrhea. No hematuria or hematochezia. No swelling of the legs. No chest pain. No palpitation. No headache. No dizziness. PHYSICAL EXAMINATION: VITAL SIGNS: Temperature 98.4, pulse 74, respiratory rate 18, blood pressure 164/57. HEENT: Head: Normocephalic, atraumatic. Eyes: PERRLA. Extraocular muscles intact. Conjunctivae clear. Nose patent. Mucous membrane moist. NECK: Supple. No carotid bruit, JVD, or thyromegaly. CHEST: Bilaterally symmetrical. HEART: S1 and S2 positive. LUNGS: Clear to auscultation. ABDOMEN: Soft. Bowel sounds present. No organomegaly. EXTREMITIES: No edema. No cyanosis. NEUROLOGIC: Patient is awake and alert. Follows simple command. LABORATORY DATA: White blood cells 7.4, hemoglobin 11.9, hematocrit 35.2, platelets 218. Sodium 140, potassium 4.5, BUN 19, creatinine 0.9. AST 25, ALT 35. ASSESSMENT AND PLAN: Ms. Lisa Singer is a 62-year-old female with anemia, urinary tract infection. Came with depression and anxiety. Has a history of chronic obstructive pulmonary disease; hypertension; obesity; major depressive disorders; arthritis; history of hypercholesterolemia; gastroesophageal reflux disease; dyspepsia, using Nexium. Trazodone for insomnia. Continue present treatment. Gastrointestinal and deep venous thrombosis prophylaxes. Labs reviewed. Appreciated consult. Thank you very much. We will follow up. Jyothi Booker MD [id number]
--- NOTE | 2017-11-19 09:33 | PN ---
DATE: 11/17/2017 SUBJECTIVE: The patient is a 52-year-old female. The patient was seen and examined on the bedside on 11/17/2017, looking comfortable. No nausea, vomiting or diarrhea. No hematuria or hematochezia. Coughing sometime. No fever, no chills. No headache, no dizziness. PHYSICAL EXAMINATION: VITAL SIGNS: Temperature 97.7, pulse 71, blood pressure 124/56, respiratory rate 18. HEENT: Head: Normocephalic, atraumatic. Eyes: PERRLA. Extraocular muscles intact. Conjunctivae clear. Nose patent. Mucous membrane moist. NECK: Supple. No carotid bruit. No JVD or thyromegaly. CHEST: Bilaterally symmetrical. HEART: S1 and S2 positive. LUNGS: Clear to auscultation. ABDOMEN: Soft. Bowel sounds present. No organomegaly. EXTREMITIES: No edema. No cyanosis. NEUROLOGIC: The patient is awake and alert. Moving all 4 extremities. No focal deficit. MEDICATIONS: Ativan, Cozaar, trazodone, folic acid, Geodon, Lipitor, amlodipine, Paxil, Protonix, multivitamins. LABORATORY DATA: White blood cell 7.1, hemoglobin 11.9, hematocrit 35.2, platelets 218. RPR nonreactive. Glucose 115. ASSESSMENT AND PLAN: Ms. Danitza Castillo is a 52-year-old lady with anemia, hyperglycemia, urinary tract infection, alcohol level less than 10. RPR nonreactive. Chest x-ray is reviewed by me. Seen by Dr. Lucinda Freire, psychiatrist. The patient is here for hypertension, depression, schizoaffective disorder, previous hospitalization into the psychiatric inpatient unit. No suicidal or homicidal thinking. Dr. Gracia as private psychiatrist. The patient psychiatrist to severe depression, inability to function, isolation. Gastrointestinal and deep venous thrombosis prophylaxes. Repeat labs. Thank you for giving me the opportunity to see your patient. We will follow up. Jyothi Booker MD [facility]
--- NOTE | 2017-11-19 15:18 | PCM.PYCHPN ---
Psychiatric Progress Note - Psychiatric Progress Note Patient seen today, length of contact: 30min Patient Chief Complaint: "I need to go home..." Problems Identified/Issues Discussed: Suicide/ homicide prevention, past psychiatric h/o, current psychiatric symptoms , medical problems, risk/benefits and alternatives of medications, medications compliance, coping strategies, substance abuse h/o, relapse prevention, importance of follow up with psychiatrist and therapist, discharge plan. Medical Problems: see HPI Diagnostic Results: 11/16/17 08:00 11/16/17 08:00 Lab Results 11/17/17 07:30: Fasting Glucose 116 H, Triglycerides 91, Cholesterol 161, LDL Cholesterol Direct 83, HDL Cholesterol 45 11/17/17 07:30: Free T4 1.12, TSH 3rd Generation 1.21 11/16/17 09:30: Urine Color Yellow, Urine Appearance Clear, Urine pH 6.0, Ur Specific [place] 1.010, Urine Protein Negative, Urine Glucose (UA) Negative, Urine Ketones Negative, Urine Blood Negative, Urine Nitrate Negative, Urine Bilirubin Negative, Urine Urobilinogen 0.2, Ur Leukocyte Esterase Large H, Urine RBC 0 - 2, Urine WBC 5 - 10, Ur Epithelial Cells 3 - 4 11/16/17 08:00: Alcohol, Quantitative < 10 11/16/17 08:00: Salicylates < 1 L, Acetaminophen < 10.0 L 11/16/17 08:00: Sodium 140, Potassium 4.5, Chloride 104, Carbon Dioxide 26, Anion Gap 14, BUN 19, Creatinine 0.9, Est GFR ( Amer) > 60, Est GFR (Non- Af Amer) > 60, Random Glucose 96, Calcium 9.7, Magnesium 2.0, Total Bilirubin 0.4, AST 25, ALT 31, Alkaline Phosphatase 96, Total Protein 7.9, Albumin 4.2, Globulin 3.7, Albumin/Globulin Ratio 1.2 11/16/17 08:00: WBC 7.1, RBC 4.12, Hgb 11.9 L, Hct 35.2 L, MCV 85.4, MCH 28.9, MCHC 33.8, RDW 13.2, Plt Count 218, MPV 12.3 H, Gran % 54.9, Lymph % (Auto) 30.9 , [place] % (Auto) 8.4 H, Eos % (Auto) 5.2 H, Baso % (Auto) 0.6, Gran # 3.90, Lymph # (Auto) 2.2, [place] # (Auto) 0.6, Eos # (Auto) 0.4, Baso # (Auto) 0.04 Vital Signs Temp Pulse Resp BP Pulse Ox 11/17/17 08:26 71 124/56 L 11/17/17 07:00 97.7 F 71 124/56 L 11/16/17 12:16 98.4 F 74 18 164/57 H 11/16/17 11:37 65 17 127/70 100 11/16/17 11:18 98.3 F 68 18 128/68 99 11/16/17 10:18 72 16 131/70 99 11/16/17 09:17 75 18 133/64 99 11/16/17 07:43 98.1 F 79 16 135/66 97 Temp Pulse Resp BP Pulse Ox 97.6 F 80 20 151/77 H 100 11/19/17 07:14 11/19/17 09:00 11/19/17 07:14 11/19/17 09:00 11/16/17 11:37 DSM 5 Symptoms Update: shortly patient is 62-year-old female with reported history of major depressive disorder, vs schizoaffective disorder, history of previous hospitalizations into the psychiatric inpatient unit, patient denied history of suicidal attempts, patient currently sees Dr. Murrieta as private psychiatrist, patient lives independently, patient brother this summer which led patient to severe depression, inability to function, self isolation,, patient was not taking care of her hygiene, patient was feeling hopeless and helpless, patient was sent to the emergency room by her private psychiatrist for psychiatric admission. Patient needs to have observation, stabilization, patient feel less level of care, requires further hospitalization and medications adjustment. patient was seen and examined today at the treatment team meeting, patient presented to be intrusive, was demanding to be discharged, patient was refusing to take Geodon complaining that she has high blood pressure, this show card writer tried to educate patient about other possible treatment options but patient was reluctant to hear, patient presented to be anxious to coming back to the room, emotionally labile. as per RN report pt is not ready for discharge, poor hygiene , not interested to go to the groups. This show card writer educated patient to submit 48 hour notice which she signed under condition that she does not want to be screened by [facility]. patient reported that she needs to be discharged because she needs to follow up with her primary care physician for her Rheumatoid arthritis shots, patient was seen by medical team. As per staff patient had good night sleep, no agitation or aggression. Collateral information was obtained from patient private psychiatrist Dr. Murrieta, patient was very depressed after her brother , patient was angry towards her brother because brother left all his money to his son and not to the pt, pt had inner conflict and pt had "love/hate"relationship with brother. pt is estranged from his nephew. pt was self isolating, on edge, was withdrawn. pt has dx of schizoaffective disorder. so far patient tolerates medications well, suzan was on hold for ? HTN. at the same time pt has h/o HTN, is on Losartan and norvasc, pt will be seen by medical team. no other side effects observed or reported, aims 0, no EPS. Impression: As per history schizoaffective disorder Medication Change: Yes (paxil increased) Medical Record Reviewed: Yes Consults ordered or reviewed: medical consult was requested pt has RA, HT Mental Status Examination - Cognitive Function Orientation: Person, Place, Situation Memory: Impaired Attention: Poor (somewhat better) Concentration: Poor (somewhat better) Association: Loose Fund of Knowledge: Poor - Mood Mood: Depressed ('I feel better"), Anxious - Affect Affect: Constricted (lless tearful) - Speech Speech: Appropriate (more appropriate today) - Formal Thought Process Formal Thought Process: Delusions (little better ), Paranoia (less guarded and paranoid), Loosening of associations, Circumstantial - Suicidal Ideation Suicidal Ideation: No - Homicidal Ideation Homicidal Ideation: No Goal/Treatment Plan - Goal/Treatment Plan Need for Continued Stay: Remain at risks for inpatient hospitalization, Severe depression anxiety, Discharge may exacerbated symptoms, Severe functional impairment Progress Toward Problem(s) and Goals/Treatment Plan: Milieu/structure/supportive therapy Medical consult was called Adalimumab [Humira] nonformulary in the hospital Methotrexate [Methotrexate] as per medical team Losartan [Cozaar] 100 mg PO DAILY will be continued amLODIPine [Norvasc] 5 mg PO DAILY will be continued Atorvastatin [Lipitor] 40 mg PO HS will be continued Esomeprazole Magnesium [Nexium] 40 mg PO DAILY will be continued Folic Acid 1 mg PO DAILY will be continue SW consultation for discharge plan and social issues Med management PARoxetine [Paxil] 30 mg PO DAILY with depression and anxiety Suzan is on hold, discussed other options Ativan 1 mg 3 times a day for anxiety Family involvement Follow up on labs Will monitor closely Pt was educated about risk/benefits and alternatives of medications, coping strategies (safety plan, suicide prevention), relapse prevention, importance of follow up with psychiatrist and therapist, stay away from drugs/alcohol/smoking Dr. Murrieta was contacted, collaterals appreciated 11/16/17 Estimated Date of D/C: 11/21/17
--- NOTE | 2017-11-20 08:49 | PN ---
DATE: 11/19/2017 The patient is a 62-year-old female. SUBJECTIVE: The patient was seen and examined at the bedside on 11/19/2017, looking comfortable, complaining about high blood pressure. No fever. No chills. No headache. No dizziness. No hematuria. No hematochezia. No headache. No dizziness. PHYSICAL EXAMINATION: VITAL SIGNS: Temperature 97.8; pulse 80; respiratory rate 20; blood pressure is 151/77, repeat blood pressure in the evening in both extremities was 160 and 170; pulse oximetry is 100. HEENT: Head is normocephalic and atraumatic. Eyes; PERRLA. Extraocular muscles are intact. Conjunctivae are clear. Nose is patent. Mucous membranes are moist. NECK: Supple. No carotid bruit, JVD or thyromegaly. CHEST: Bilaterally symmetrical. HEART: S1 and S2 positive. LUNGS: Clear to auscultation. ABDOMEN: Soft. Bowel sounds present. No organomegaly. EXTREMITIES: No edema. No cyanosis. NEUROLOGIC: The patient is awake and alert. Moving all extremities. No focal deficits. LABORATORY DATA: White blood cell 7.1, hemoglobin 11.9, hematocrit 35.2, and platelets 218. Sodium 140, potassium 4.5, BUN 19, creatinine 0.9, and glucose 96. ASSESSMENT AND PLAN: Ms. Singer is a lady with anemia and hypertension, getting blood pressure medications. I added clonidine 0.1 mg 2-3 times a day p.r.n. if blood pressure systolic is more than 140. Discussion done with the patient and nursing staff. This patient has history of schizoaffective disorder; depression; paranoia, delusional; history of rheumatoid arthritis/lupus, getting methotrexate; hypercholesterolemia, getting cholesterol medication; Nexium for gastroesophageal reflux disease and dyspepsia; folic acid for anemia. Continue current treatment. Appreciated Dr. Freire's input in the patient's psych problems. Discussion done with the patient and nursing staff. We will follow up. Jyothi Booker MD
[2017-11-20] MEDS: Pantoprazole 40 mg EC Tab PO SCH (09:41)
[2017-11-20] MEDS: Multivitamin Therapeutic Tab PO SCH (09:43)
--- NOTE | 2017-11-20 16:15 | PCM.PYCHPN ---
Psychiatric Progress Note - Psychiatric Progress Note Patient seen today, length of contact: 30min Patient Chief Complaint: "I feel better" Problems Identified/Issues Discussed: Suicide/ homicide prevention, past psychiatric h/o, current psychiatric symptoms, medical problems, risk/benefits and alternatives of medications, medications compliance, coping strategies, substance abuse h/o, relapse prevention, importance of follow up with psychiatrist and therapist, discharge plan. Medical Problems: see HPI Diagnostic Results: 11/16/17 08:00 11/16/17 08:00 Lab Results 11/17/17 07:30: Fasting Glucose 116 H, Triglycerides 91, Cholesterol 161, LDL Cholesterol Direct 83, HDL Cholesterol 45 11/17/17 07:30: Free T4 1.12, TSH 3rd Generation 1.21 11/16/17 09:30: Urine Color Yellow, Urine Appearance Clear, Urine pH 6.0, Ur Specific [place] 1.010, Urine Protein Negative, Urine Glucose (UA) Negative, Urine Ketones Negative, Urine Blood Negative, Urine Nitrate Negative, Urine Bilirubin Negative, Urine Urobilinogen 0.2, Ur Leukocyte Esterase Large H, Urine RBC 0 - 2, Urine WBC 5 - 10, Ur Epithelial Cells 3 - 4 11/16/17 08:00: Alcohol, Quantitative < 10 11/16/17 08:00: Salicylates < 1 L, Acetaminophen < 10.0 L 11/16/17 08:00: Sodium 140, Potassium 4.5, Chloride 104, Carbon Dioxide 26, Anion Gap 14, BUN 19, Creatinine 0.9, Est GFR ( Amer) > 60, Est GFR (Non- Af Amer) > 60, Random Glucose 96, Calcium 9.7, Magnesium 2.0, Total Bilirubin 0.4, AST 25, ALT 31, Alkaline Phosphatase 96, Total Protein 7.9, Albumin 4.2, Globulin 3.7, Albumin/Globulin Ratio 1.2 11/16/17 08:00: WBC 7.1, RBC 4.12, Hgb 11.9 L, Hct 35.2 L, MCV 85.4, MCH 28.9, MCHC 33.8, RDW 13.2, Plt Count 218, MPV 12.3 H, Gran % 54.9, Lymph % (Auto) 30.9, [place] % (Auto) 8.4 H, Eos % (Auto) 5.2 H, Baso % (Auto) 0.6, Gran # 3.90, Lymph # (Auto) 2.2, [place] # (Auto) 0.6, Eos # (Auto) 0.4, Baso # (Auto) 0.04 Vital Signs Temp Pulse Resp BP Pulse Ox 11/17/17 08:26 71 124/56 L 11/17/17 07:00 97.7 F 71 124/56 L 11/16/17 12:16 98.4 F 74 18 164/57 H 11/16/17 11:37 65 17 127/70 100 11/16/17 11:18 98.3 F 68 18 128/68 99 11/16/17 10:18 72 16 131/70 99 11/16/17 09:17 75 18 133/64 99 11/16/17 07:43 98.1 F 79 16 135/66 97 Temp Pulse Resp BP Pulse Ox 97.6 F 80 20 151/77 H 100 11/19/17 07:14 11/19/17 09:00 11/19/17 07:14 11/19/17 09:00 11/16/17 11:37 DSM 5 Symptoms Update: shortly patient is 62-year-old female with reported history of major depressive disorder, vs schizoaffective disorder, history of previous hospitalizations into the psychiatric inpatient unit, patient denied history of suicidal attempts, patient currently sees Dr. Murrieta as private psychiatrist, patient lives independently, patient brother this summer which led patient to severe depression, inability to function, self isolation,, patient was not taking care of her hygiene, patient was feeling hopeless and helpless, patient was sent to the emergency room by her private psychiatrist for psychiatric admission. Patient needs to have observation, stabilization, patient feel less level of care, requires further hospitalization and medications adjustment. patient was seen and examined today next to the nursing station. as per staff pt is calmer BP is better controlled, pt was seen by medical team, input appreciated. pt was not intrusive, agreed with increase of paxil. discussed about d/c tomorrow. pt was not fighting over it. As per staff patient had good night sleep, no agitation or aggression. discussed with , pt will f/u with him within one week. so far patient tolerates medications well, no side effects observed or reported, aims 0, no EPS. Impression: As per history schizoaffective disorder Medication Change: Yes (paxil increased) Medical Record Reviewed: Yes Consults ordered or reviewed: medical consult was requested pt has RA, HT Mental Status Examination - Cognitive Function Orientation: Person, Place, Situation Memory: Impaired Attention: Poor (somewhat better) Concentration: Poor (somewhat better) Association: Loose Fund of Knowledge: Poor - Mood Mood: Depressed ("I am better") - Affect Affect: Constricted (but more reactive today) - Speech Speech: Appropriate (more appropriate today) - Formal Thought Process Formal Thought Process: Delusions (denied), Paranoia (denied), Loosening of associations, Circumstantial - Suicidal Ideation Suicidal Ideation: No - Homicidal Ideation Homicidal Ideation: No Goal/Treatment Plan - Goal/Treatment Plan Need for Continued Stay: Remain at risks for inpatient hospitalization, Severe depression anxiety, Discharge may exacerbated symptoms, Severe functional impairment Progress Toward Problem(s) and Goals/Treatment Plan: Milieu/structure/supportive therapy Medical consult was called Adalimumab [Humira] nonformulary in the hospital Methotrexate [Methotrexate] as per medical team Losartan [Cozaar] 100 mg PO DAILY will be continued amLODIPine [Norvasc] 5 mg PO DAILY will be continued Atorvastatin [Lipitor] 40 mg PO HS will be continued Esomeprazole Magnesium [Nexium] 40 mg PO DAILY will be continued Folic Acid 1 mg PO DAILY will be continue consultation for discharge plan and social issues Med management PARoxetine [Paxil] 30 mg PO DAILY with depression and anxiety Suzan is on hold, discussed other options Ativan 1 mg 3 times a day for anxiety Family involvement Follow up on labs Will monitor closely Pt was educated about risk/benefits and alternatives of medications, coping strategies (safety plan, suicide prevention), relapse prevention, importance of follow up with psychiatrist and therapist, stay away from drugs/alcohol/smoking Dr. Murrieta was contacted, collaterals appreciated 11/16/17 Estimated Date of D/C: 11/21/17
[2017-11-21] MEDS: Pantoprazole 40 mg EC Tab PO SCH (06:48)
[2017-11-21 07:07] VITALS: PULSE 74; RESP 20; TEMP 99.1
[2017-11-21 08:15] VITALS: BP 176/56
--- NOTE | 2017-11-21 17:29 | PCM.PYCHDC ---
Mental Status Examination - Mental Status Examination Orientation: Person, Place, Situation, Time Memory: Intact Mood: Neutral Affect: Broad (and mood congruent) Speech: Appropriate Attention: Poor (much improved) Concentration: Poor (much improved) Association: WNL Fund of Knowledge: Poor (baseline) Formal Thought Process: Paranoia (patient is mildly paranoid and guarded chronic but with much improvement) Description of patient's judgement and insight: Pt has improved insight into mental and medical illness, pt was compliant with medications and unit rules and regulations, pt was going to groups, was calm, cooperative, socially appropriate, no behavioral incidents, no agitation, no aggression. Psychotic Thoughts and Behaviors: Pt denied v/a/t hallucinations, denied paranoid ideations, pt does not appear to be psychotic, and thought process is goal directed. Suicidal Ideation: No Current Homicidal Ideation?: No Plan: pt adamantly denied thoughts of harming self or others denied intent or plan. Discharge Summary - Discharge Note Reason for Hospitalization: initially patient was willing to be admitted to psychiatric inpatient unit, in the process of admission while patient reached locked unit patient became agitated, was screaming out loud on top of her lungs, requesting discharge as soon as possible, at the same time patient refused to submit 48 hour notice, patient obviously in acute distress, requires further evaluation and stab ilization. over the course of this hospitalization patient presented better, wanted to complete treatment, at the same time submitted 48 hour notice, and wanted to be discharged. Psychiatric History (includes Medical, Family, Personal Hx): see HPI Laboratory Data: 11/16/17 08:00 11/16/17 08:00 Lab Results 11/17/17 07:30: RPR Nonreactive 11/17/17 07:30: Fasting Glucose 116 H, Triglycerides 91, Cholesterol 161, LDL Cholesterol Direct 83, HDL Cholesterol 45 11/17/17 07:30: Free T4 1.12, TSH 3rd Generation 1.21 11/16/17 09:30: Urine Color Yellow, Urine Appearance Clear, Urine pH 6.0, Ur Specific [place] 1.010, Urine Protein Negative, Urine Glucose (UA) Negative, Urine Ketones Negative, Urine Blood Negative, Urine Nitrate Negative, Urine Bilirubin Negative, Urine Urobilinogen 0.2, Ur Leukocyte Esterase Large H, Urine RBC 0 - 2, Urine WBC 5 - 10, Ur Epithelial Cells 3 - 4 11/16/17 08:00: Alcohol, Quantitative < 10 11/16/17 08:00: Salicylates < 1 L, Acetaminophen < 10.0 L 11/16/17 08:00: Sodium 140, Potassium 4.5, Chloride 104, Carbon Dioxide 26, Anion Gap 14, BUN 19, Creatinine 0.9, Est GFR ( Amer) > 60, Est GFR (Non- Af Amer) > 60, Random Glucose 96, Calcium 9.7, Magnesium 2.0, Total Bilirubin 0.4, AST 25, ALT 31, Alkaline Phosphatase 96, Total Protein 7.9, Albumin 4.2, Globulin 3.7, Albumin/Globulin Ratio 1.2 11/16/17 08:00: WBC 7.1, RBC 4.12, Hgb 11.9 L, Hct 35.2 L, MCV 85.4, MCH 28.9, MCHC 33.8, RDW 13.2, Plt Count 218, MPV 12.3 H, Gran % 54.9, Lymph % (Auto) 30.9, [place] % (Auto) 8.4 H, Eos % (Auto) 5.2 H, Baso % (Auto) 0.6, Gran # 3.90, Lymph # (Auto) 2.2, [place] # (Auto) 0.6, Eos # (Auto) 0.4, Baso # (Auto) 0.04 Vital Signs Temp Pulse Resp BP Pulse Ox 11/21/17 08:02 74 176/56 H 11/21/17 07:06 99.1 F 74 20 173/56 H 11/20/17 17:30 70 160/67 H 11/20/17 16:00 70 160/67 H 11/20/17 09:40 85 153/63 H 11/20/17 07:15 97.6 F 85 19 153/68 H 11/19/17 20:31 89 197/72 H 11/19/17 18:00 86 161/56 H 11/19/17 16:00 86 184/74 H 11/19/17 09:00 80 151/77 H 11/19/17 07:14 97.6 F 80 20 151/77 H 11/18/17 09:02 93 H 120/90 11/18/17 07:03 97.7 F 68 20 158/58 H 11/17/17 08:26 71 124/56 L 11/17/17 07:00 97.7 F 71 124/56 L 11/16/17 12:16 98.4 F 74 18 164/57 H 11/16/17 11:37 65 17 127/70 100 11/16/17 11:18 98.3 F 68 18 128/68 99 11/16/17 10:18 72 16 131/70 99 11/16/17 09:17 75 18 133/64 99 11/16/17 07:43 98.1 F 79 16 135/66 97 Consultations:: List each consultation separately and include: 1. Reason for request. 2. Findings. 3. Follow-up Consultations: medical consult was requested pt has NIRMALA TAYLOR please see notes for more detailed information Summary of Hospital Course include:: 1. Description of specific treatment plan utilized for patients during their course of treatmen. 2. Summarize the time- course for resolution of acute symptoms and/or regressed behaviors. 3. Describe issues identified and worked on during hospitalization. 4. Describe medication utilized. 5. Describe medical problems identified and treated. 6. Reassessment of suicide risk Summary of Hospital Course: shortly patient is 62-year-old female with reported history of major depressive disorder, history of previous hospitalizations into the psychiatric inpatient unit, patient denied history of suicidal attempts, patient currently sees Dr. Murrieta as private psychiatrist, patient lives independently, patient brother this summer which led patient to severe depression, inability to function, self isolation,, patient was not taking care of her hygiene, patient was feeling hopeless and helpless, patient was sent to the emergency room by her private psychiatrist for psychiatric admission. Patient needs to have observation, stabilization, patient feel less level of care, requiresfurther hospitalization and medications adjustment. initially patient was seen and examined next to the nursing station, patient approached this lead technical writer started to scream, yell, was in acute distress, patient was not able to calm down, patient was screaming "AAAAA, I made a mistake, I am dying, I want to leave, you have to let me go, AAAAAAA, I don't know what is going on with me, AAAAA, I cannot control myself, AAAA, let me go.......", staff intervene immediately, pt was redirected to the quiet room "I am not going there AAAA, I am NOT going there....", pt was walked to the office, pt was medicated with po Ativan and later PO suzan, Geni Joseph almost called, but pt was able to calm down. Patient reported after the of her brother she was feeling more depressed, hopeless and helpless, "it got into me", patient was feeling "trapped in my own house", patient reported that she was not able to relax, had difficulties to fall asleep and stay asleep, patient reported that she had difficulties to concentrate and stay focused, patient denied intent or plan to kill herself or others but was feeling very hopeless. Patient denied hearing voices denied seeing things, but patient presented to be guarded and paranoid, constantly looking at her back. Patient denied using any drugs, denied using alcohol, denied smoking. No manic symptoms reported or observed. Patient appears to be very anxious, patient reports that she has panic attacks, patient reports that her mind is racing, patient also reports no history of abuse. Past psychiatric history: As per history from the patient she did not require any acute psychiatric admissions "for years I was doing well". Patient's address history of suicidal attempts in the past. Family history: Unknown. Medical history: Dyslipidemia, hypertension, GERD. Med list: Paxil 10 mg daily Ativan 1 mg 3 times a day Losartan 100 mg daily Norvasc 5 mg daily Folic acid 1 mg daily Nexium 40 mg daily Lipitor 40 mg at the nighttime Trazodone 100 mg at the nighttime patient reported that she has been compliant with the medications. 11/16/17 08:00 11/16/17 08:00 Lab Results 11/16/17 09:30: Urine Color Yellow, Urine Appearance Clear, Urine pH 6.0, Ur Specific [place] 1.010, Urine Protein Negative, Urine Glucose (UA) Negative, Urine Ketones Negative, Urine Blood Negative, Urine Nitrate Negative, Urine Bilirubin Negative, Urine Urobilinogen 0.2, Ur Leukocyte Esterase Large H, Urine RBC 0 - 2, Urine WBC 5 - 10, Ur Epithelial Cells 3 - 4 11/16/17 08:00: Alcohol, Quantitative < 10 11/16/17 08:00: Salicylates < 1 L, Acetaminophen < 10.0 L 11/16/17 08:00: Sodium 140, Potassium 4.5, Chloride 104, Carbon Dioxide 26, Anion Gap 14, BUN 19, Creatinine 0.9, Est GFR ( Amer) > 60, Est GFR (Non- Af Amer) > 60, Random Glucose 96, Calcium 9.7, Magnesium 2.0, Total Bilirubin 0.4, AST 25, ALT 31, Alkaline Phosphatase 96, Total Protein 7.9, Albumin 4.2, Globulin 3.7, Albumin/Globulin Ratio 1.2 11/16/17 08:00: WBC 7.1, RBC 4.12, Hgb 11.9 L, Hct 35.2 L, MCV 85.4, MCH 28.9, MCHC 33.8, RDW 13.2, Plt Count 218, MPV 12.3 H, Gran % 54.9, Lymph % (Auto) 30.9, [place] % (Auto) 8.4 H, Eos % (Auto) 5.2 H, Baso % (Auto) 0.6, Gran # 3.90, Lymph # (Auto) 2.2, [place] # (Auto) 0.6, Eos # (Auto) 0.4, Baso # (Auto) 0.04 Vital Signs Temp Pulse Resp BP Pulse Ox 11/16/17 12:16 98.4 F 74 18 164/57 H 11/16/17 11:37 65 17 127/70 100 11/16/17 11:18 98.3 F 68 18 128/68 99 11/16/17 10:18 72 16 131/70 99 11/16/17 09:17 75 18 133/64 99 11/16/17 07:43 98.1 F 79 16 135/66 97 this lead technical writer initiated Suzan, patient convinced that Geodon gives patient high blood pressure, patient does not want to be on Risperdal or on any other antipsychotic medications. Patient was stabilized on the following medications: PARoxetine [Paxil] 30 mg PO hs depression and anxiety Ativan 1 mg 3 times a day for anxiety patient tolerated medications well, no side effects observed or reported, aims 0, no EPS. Discussed with Dr. Murrieta, patient will be followed up with him within 1 week, patient was advised to see her primary care physician for hypertension, patient verbalized understanding. Over the course of this hospitalization pt was attending groups, pt also had medication management, had therapeutic milieu. Overall pt improved significantly, pt's affect became brighter, pt was less depressed, has realistic future oriented plans, pt also does not appear to be psychotic, or anxious, or depressed, pt was socially appropriate, no behavioral issues, pts insight improved as well and soon pt deemed to be ready for discharge. At the time of the discharge pt denied thoughts of harming self or others, denied psychotic symptoms, and pt does not appeared to be psychotic, denied been anxious, pt is not in imminent danger to self or others, pt will f/u with , information about follow up appointment, time and address provided to the pt, it is patient responsibility to follow up with outpatient clinic, PMD as well as specialists (see SW note for more detailed information). In case pt will need to obtain results of studies pending at discharge pt was provided with contact information of Psychiatric Inpatient unit [phone] as well as Medical Record Department [phone]. patient does not smoke, patient does not use drugs, patient does not drink alcohol pt was provided with prescriptions for all of medications (please see medication reconciliation form) Pt was educated about safety plan in case of worsening of symptoms or in case of suicidal or homicidal ideation call 911 or go to the nearest ER, also was educated to take meds as prescribed and stay away from drugs, pt verbalized understanding. - Diagnosis (1) Schizoaffective disorder, bipolar type Status: Chronic Priority: Medium (2) Hypertension Status: Chronic Priority: Medium - Final Diagnosis (DSM 5) Condition upon Discharge: IMPROVED Disposition: HOME/ ROUTINE Follow-up Treatment Plan: At the time of the discharge pt denied thoughts of harming self or others, denied psychotic symptoms, and pt does not appeared to be psychotic, denied been anxious, pt is not in imminent danger to self or others, pt will f/u with , information about follow up appointment, time and address provided to the pt, it is patient responsibility to follow up with outpatient clinic, PMD as well as specialists (see SW note for more detailed information). In case pt will need to obtain results of studies pending at discharge pt was provided with contact information of Psychiatric Inpatient unit [phone] as well as Medical Record Department [phone]. patient does not smoke, patient does not use drugs, patient does not drink alcohol pt was provided with prescriptions for all of medications (please see medication reconciliation form) Pt was educated about safety plan in case of worsening of symptoms or in case of suicidal or homicidal ideation call 911 or go to the nearest ER, also was educated to take meds as prescribed and stay away from drugs, pt verbalized understanding. Prescriptions/Medication Reconciliation: amLODIPine [Norvasc] 5 mg PO DAILY #7 tab Aspirin [Ecotrin] 81 mg PO DAILY #7 tabec Atorvastatin [Lipitor] 40 mg PO HS #7 tab cloNIDine [Catapres] 0.1 mg PO TID PRN #21 tab PRN Reason: BP >140 Folic Acid 1 mg PO DAILY #7 tab LORazepam [Ativan] 1 mg PO TID PRN #45 tab PRN Reason: Anxiety Losartan [Cozaar] 100 mg PO DAILY #7 tab Multivitamin Therapeutic Tab [Thera Tab] 1 tab PO 0800 #7 tab Pantoprazole [Protonix EC Tab] 40 mg PO 0700 #7 ect PARoxetine [Paxil] 30 mg PO HS #14 tab - Smoking Cessation Smoking Cessation Medication prescribed: No Reason for not providing: pt does not smoke - Antipsychotic Medications Pt discharged on 2 or more routine antipsychotic medications: No
--- NOTE | 2017-11-22 08:29 | PN ---
DATE: 11/20/2017 SUBJECTIVE: The patient was seen and examined on the bedside on 11/20/2017. Looking comfortable. No nausea, vomiting or diarrhea. No hematuria or hematochezia. No headache. No dizziness. No chest pain. No palpitation. Anxiety is better. Blood pressure is getting better. No fever. No chills. PHYSICAL EXAMINATION: VITAL SIGNS: Temperature 97.6, pulse 80, respiratory rate 20, blood pressure 150/77, pulse oximetry 100%. HEENT: Head normocephalic, atraumatic. Eyes PERRLA. Extraocular muscles intact. Conjunctivae clear. Nose patent. Mucous membranes are moist. NECK: Supple. No carotid bruit. No JVD or thyromegaly. CHEST: Bilaterally symmetrical. HEART: S1 and S2 positive. LUNGS: Clear to auscultation. ABDOMEN: Soft. Bowel sounds positive. No organomegaly. EXTREMITIES: No edema. No cyanosis. NEUROLOGICAL: The patient is awake and alert. Moving all 4 extremities. No focal deficits. LABORATORY DATA: White blood cells 7.1, hemoglobin 11.9, hematocrit 36.2, platelets 218. Sodium 140, potassium 4.5, BUN 19, creatinine 0.9, glucose 96. ASSESSMENT AND PLAN: Ms. Enmanuel Gonzalez is a 62-year-old female with anemia; hypertension, getting under control; history of major depression; schizoaffective disorder; has previous hospitalization for psychiatric diagnosis. The patient is a private patient of Dr. Gracia. Reviewed Dr. Lucinda Freire's notes. History of anemia; history of rheumatoid arthritis/lupus, getting methotrexate; hypercholesterolemia; gastroesophageal reflux disease; dyspepsia. Continue present treatment. Gastrointestinal and deep vein thrombosis prophylaxes. Out of bed. Physical therapy. We will follow up. Jyothi Booker MD
== END 2017-11-21 11:51 | disposition home or self-care (01) | DRG 885 ==
LOC: ED 07:32 → ERH 10:29 → PSYC 11:41
PROVIDERS: ADMIT Psychiatry & Neurology Psychiatry; ATTEND Psychiatry & Neurology Psychiatry
DX: F25.0 Schizoaffective disorder, bipolar type (principal); N39.0 Urinary tract infection, site not specified; I10 Essential (primary) hypertension; D64.9 Anemia, unspecified; E78.00 Pure hypercholesterolemia, unspecified; E78.5 Hyperlipidemia, unspecified; F41.0 Panic disorder [episodic paroxysmal anxiety]; F41.1 Generalized anxiety disorder; G47.00 Insomnia, unspecified; J44.9 Chronic obstructive pulmonary disease, unspecified; K21.9 Gastro-esophageal reflux disease without esophagitis; M06.9 Rheumatoid arthritis, unspecified; Z63.8 Other specified problems related to primary support group; Z79.899 Other long term (current) drug therapy; Z91.19 Patient's noncompliance with other medical treatment and regimen